=== PATIENT | female | born 1945 | race African-American/Black ===

== ENCOUNTER 2019-01-02 09:26 | Emergency (ER) | payer OTHER ==
[~2019-01-02] VITALS: Ht 160 cm; Wt 59.0 kg
[2019-01-02 10:52] LABS: MCH 26.9 pg (26.0-34.0); MCHC 32.8 g/dL (28.0-37.0); MCV 82.2 fL (80.0-100.0); PLATELET COUNT 402 thou/uL (150-400); RBC 2.12 mil/uL (4.20-5.00); RDW 18.1 % (10.5-14.5); WBC 10.2 thou/uL (4.0-11.0)
[2019-01-02 10:55] LABS: HEMATOCRIT 17.4 % (37.0-47.0); HEMOGLOBIN 5.7 gm/dL (12.0-15.0)
[2019-01-02 11:15] LABS: APTT 28.9 Seconds (24.5-32.8); PROTIME 10.7 Seconds (9.3-11.4)
[2019-01-02 11:17] LABS: ABSOLUTE NEUTROPHILS 8.2 thou/uL (1.4-8.2); ANISOCYTOSIS 1+; ATYPICAL LYMPHS 1 %; HYPOCHROMASIA 2+; NUCLEATED RBCS 4 /100WBC; POIKILOCYTOSIS SLIGHT
[2019-01-02 11:18] LABS: OVALOCYTES OCCASIONAL; POLYCHROMASIA SLIGHT
[2019-01-02 11:44] LABS: CALCIUM 8.5 mg/dL (8.5-10.1); CREATININE 0.7 mg/dL (0.6-1.0); POTASSIUM 4.1 mmol/L (3.5-5.1)
[2019-01-02 11:50] LABS: ALBUMIN 2.6 g/dL (3.4-5.0); TOTAL BILIRUBIN 0.6 mg/dL (<0.1-1.0); TOTAL PROTEIN 6.9 g/dL (6.4-8.2)
[2019-01-02 13:45] VITALS: BP 119/65
--- NOTE | 2019-01-02 16:06 | EKG ---
[address] [facility] [place] [address] ELECTROCARDIOGRAM REPORT Name: VALERIA GAMING Room #: DEP HELEN Stokes#: [id number] ������������������ Admission: 01/02/19 ������������������ Attend Phys: Discharge: 01/02/19 ������������������ Date of : 47 Report #: [id number] ����������������������������������������������������������������� [id number] THIS REPORT FOR: //name// 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 : 1945 Requested By: Rena Gan Order Number: [id number] MD: Kris Rojas Measurements Intervals [place] Rate: 93 P: 54 LA: 118 QRS: 51 QRSD: 78 T: 37 QT: 350 QTc: 436 Interpretive Statements Sinus rhythm Borderline short [place] interval No previous ECG available for comparison Electronically Signed On 01-02-2019 16:06:05 CDT by Kris Rojas [email or web address] ��������������������������������������������� <ELECTRONICALLY SIGNED> ���������������������������������������� By: Kris Rojas MD ��������������������������������������������� 01/02/19 [id number] MD AMPARO Jesus
== END 2019-01-02 14:09 | disposition short-term general hospital (02) ==
LOC: ER 09:26
PROVIDERS: Physician Assistant
DX: S22.41XA Multiple fractures of ribs, right side, initial encounter for closed fracture (principal); S36.113A Laceration of liver, unspecified degree, initial encounter; D64.9 Anemia, unspecified; R55 Syncope and collapse; I10 Essential (primary) hypertension; Z87.891 Personal history of nicotine dependence; W18.39XA Other fall on same level, initial encounter; Y92.89 Other specified places as the place of occurrence of the external cause; Y93.89 Activity, other specified; Y99.8 Other external cause status